=== PATIENT | female | born 1980 | race Caucasian/White ===

== ENCOUNTER → 2017-07-09 14:27 | Outpatient (CLI) | payer BC, SELFPAY | PROVIDERS: Visit Provider Nurse Practitioner Family | DX: Z00.00 Encounter for general adult medical examination without abnormal findings (principal) ==

== ENCOUNTER → 2017-07-11 07:58 | Outpatient (CLI) | payer BC, SELFPAY ==
[2017-07-11 08:17] LABS: Basophils % 0.4 % (0.1-2.0); Eosinophils # 0.2 K/mm3 (0.0-0.4); Eosinophils % 2.3 % (0.1-12.0); Hematocrit 41.5 % (37.0-47.0); Hemoglobin 13.7 g/dL (12.2-16.2); Lymphocytes # 2.4 K/mm3 (0.7-4.5); Lymphocytes % 32.3 K/mm3 (10-50); Mean Corpuscular Hemoglobin 28.8 pg (27.0-31.2); Mean Corpuscular Volume 87.3 fl (81-99); Mean Platelet Volume 7.5 fl (7.4-10.4); Monocytes # 0.3 K/mm3 (0.1-1.0); Monocytes % 4.1 % (1.7-9.3); Neutrophils # 4.5 K/mm3 (1.8-7.8); Neutrophils % 60.9 % (37.0-80.0); Platelet Count 351 K/mm3 (142-424); Red Blood Count 4.76 M/mm3 (4.20-5.40); Red Cell Distribution Width 13.6 % (11.5-17.5); White Blood Count 7.3 K/mm3 (4.8-10.8)
[2017-07-11 09:24] LABS: Alanine Aminotransferase 16 U/L (12-78); Albumin Level 3.8 gm/dL (3.4-5.0); Albumin/Globulin Ratio 1.1 (1.1-1.8); Alkaline Phosphatase 90 U/L (46-116); Aspartate Amino Transferase 15 U/L (15-37); Bilirubin,Total 0.5 mg/dL (0.2-1.0); Blood Urea Nitrogen 10 mg/dL (7-18); Calcium 9.2 mg/dL (8.5-10.1); Carbon Dioxide 29 mmol/L (21.0-32.0); Chloride 106 mmol/L (98-107); Chol/HDL Ratio 4.8 (1-3.5); Cholesterol 197 mg/dL (140-200); Creatinine,Serum 0.75 mg/dL (0.55-1.02); Estimated Glomerular Filt Rate 87 ml/min (>60); GFR (African American) 105 ML/MIN (>60); Globulin 3.4 gm/dl (1.3-3.2); Glucose 99 mg/dL (74-106); HDL Cholesterol 41 mg/dL (29-89); LDL Cholesterol 136 mg/dL (0-130); Sodium 141 mmol/L (136-145); Thyroid Stimulating Hormone 0.42 uIU/ml (0.358-3.740); Total Protein,Serum 7.2 gm/dL (6.4-8.2); Triglycerides 101 mg/dL (30-200); VLDL Cholesterol 20 mg/dL (0-40)
[2017-07-12 14:50] LABS: Vitamin B12 443 pg/mL (232-1245)
== END ==
PROVIDERS: Visit Provider Nurse Practitioner Family
DX: Z00.00 Encounter for general adult medical examination without abnormal findings (principal); E53.8 Deficiency of other specified B group vitamins; E03.9 Hypothyroidism, unspecified
CPT/HCPCS: 36415; 80053; 80061; 82607; 84443; 85025

== ENCOUNTER → 2017-08-21 11:00 | Outpatient (REF) | payer BC, SELFPAY | LOC: LAB 11:00 | PROVIDERS: Visit Provider Podiatrist | DX: L08.9 Local infection of the skin and subcutaneous tissue, unspecified (principal) | CPT/HCPCS: 87070; 87077; 87106; 87205 ==

== ENCOUNTER → 2017-10-31 16:54 | Outpatient (CLI) | payer BC, SELFPAY ==
[2017-10-31 17:18] LABS: Basophils % 0.3 % (0.1-2.0); Eosinophils # 0.1 K/mm3 (0.0-0.4); Eosinophils % 1.5 % (0.1-12.0); Hematocrit 41.5 % (37.0-47.0); Lymphocytes % 31.5 K/mm3 (10-50); Mean Corpuscular HGB Conc 33.8 g/dL (31.8-35.4); Mean Corpuscular Hemoglobin 29.2 pg (27.0-31.2); Mean Corpuscular Volume 86.3 fl (81-99); Mean Platelet Volume 7.4 fl (7.4-10.4); Monocytes # 0.5 K/mm3 (0.1-1.0); Monocytes % 5.3 % (1.7-9.3); Neutrophils # 5.8 K/mm3 (1.8-7.8); Neutrophils % 61.3 % (37.0-80.0); Platelet Count 328 K/mm3 (142-424); Red Blood Count 4.81 M/mm3 (4.20-5.40); Red Cell Distribution Width 13.1 % (11.5-17.5); White Blood Count 9.5 K/mm3 (4.8-10.8)
[2017-10-31 18:56] LABS: Alanine Aminotransferase 21 U/L (12-78); Albumin Level 4.1 gm/dL (3.4-5.0); Albumin/Globulin Ratio 1.2 (1.1-1.8); Alkaline Phosphatase 97 U/L (46-116); Anion Gap 11.7 mEq/L (5-15); Aspartate Amino Transferase 12 U/L (15-37); Bilirubin,Total 0.4 mg/dL (0.2-1.0); Blood Urea Nitrogen 7 mg/dL (7-18); Carbon Dioxide 27 mmol/L (21.0-32.0); Chloride 103 mmol/L (98-107); Chol/HDL Ratio 5.6 (1-3.5); Cholesterol 202 mg/dL (140-200); Creatinine,Serum 0.81 mg/dL (0.55-1.02); Estimated Glomerular Filt Rate 79 ml/min (>60); GFR (African American) 96 ML/MIN (>60); Globulin 3.5 gm/dl (1.3-3.2); Glucose 96 mg/dL (74-106); HDL Cholesterol 36 mg/dL (29-89); LDL Cholesterol 132 mg/dL (0-130); Potassium 3.7 mmoL/L (3.5-5.1); Sodium 138 mmol/L (136-145); Thyroid Stimulating Hormone 0.05 uIU/ml (0.358-3.740); Total Protein,Serum 7.6 gm/dL (6.4-8.2); Triglycerides 169 mg/dL (30-200); VLDL Cholesterol 34 mg/dL (0-40)
== END ==
LOC: LAB.CARL 16:55 → LAB 16:56
PROVIDERS: Visit Provider Nurse Practitioner Family
DX: Z00.00 Encounter for general adult medical examination without abnormal findings (principal); R00.2 Palpitations; R06.02 Shortness of breath; E03.9 Hypothyroidism, unspecified
CPT/HCPCS: 36415; 80053; 80061; 84443; 85025

== ENCOUNTER → 2017-11-01 17:55 | Outpatient (CLI) | payer BC, SELFPAY | PROVIDERS: PCP Nurse Practitioner Family; Visit Provider Nurse Practitioner Family | DX: R00.2 Palpitations (principal); R06.02 Shortness of breath | CPT/HCPCS: 93225; 93226 ==

== ENCOUNTER → 2017-11-07 14:26 | Outpatient (CLI) | payer BC, SELFPAY ==
--- NOTE | 2017-11-07 14:34 | CA_ITS ---
PROCEDURE: 2-D M-mode and color Doppler study INDICATIONS FOR THE TEST: Chest pain X COPD Heart Murmur Tobacco Smoking PalpitationsX Fatigue Syncope Edema Hypertension Diabetes Mellitus Rheumatic Fever SOBXDOE Obesity Hyperlipidemia Family History HD Additional History BUBBLE STUDY DONE PATIENT INFORMATION HEIGHT: 65 WEIGHT:125 GENDER: Female B/P:110/70 2-D/M-MODE INTERPRETATION: 2-D MEASUREMENTS OBSERVED VALUES IN CMS Right Ventricular Dimension (RVDd) 1.9 Interventricular Septum (Thickness)(IVsd) .8 Left Ventricular Internal Dimensions(LVIDd) 4.5 Left Ventricular Posterior Wall (Thickness)(LVPWd) .9 Aortic Root 2.5 Aortic Cusp Separation 1.8 Left Atrial Dimensions (LAD) 2.5 2D 1. Left atrium is normal size, left ventricle is normal size, there is no concentric left ventricular hypertrophy, visually estimated ejection fraction 55% with no obvious regional wall motion abnormality. 2. The right atrium and right ventricle are normal size and contractility. 3. The aortic, mitral and tricuspid valve are grossly normal. 4. The pulmonic valve is poorly visualized. 5. No significant pericardial effusion noted. DOPPLER INTERROGATION: Doppler interrogation of the aortic, mitral and tricuspid valvular presence of mild mitral and tricuspid regurgitation, tricuspid regurgitation jet velocity is insufficient for calculation of the right ventricular systolic pressure, diastolic parameters are within normal range. Agitated saline contrast study fails to identify intracardiac shunt. CONCLUSION: 1. Normal left ventricular size, preserved left ventricular systolic function, visually estimated ejection fraction 55% with no obvious regional wall motion abnormality. Diastolic parameters are within normal range. 2. Mild mitral and tricuspid regurgitation 3. No significant pericardial effusion noted.
== END ==
PROVIDERS: PCP Internal Medicine Adolescent Medicine; Visit Provider Nurse Practitioner Family
DX: R00.2 Palpitations (principal); R06.02 Shortness of breath
CPT/HCPCS: 93306

== ENCOUNTER → 2018-03-08 18:07 | Outpatient (CLI) | payer BC, MEDICAID, SELFPAY ==
[2018-03-08 18:54] LABS: Thyroid Stimulating Hormone 1.19 uIU/ml (0.358-3.740)
[2018-03-11 14:25] LABS: Vitamin D 25 Hydroxy 17.8 ng/mL (30.0-100.0)
== END ==
PROVIDERS: Visit Provider Nurse Practitioner Family
DX: E03.9 Hypothyroidism, unspecified (principal); R53.83 Other fatigue
CPT/HCPCS: 82652; 84443

== ENCOUNTER → 2018-03-19 08:43 | Outpatient (CLI) | payer MEDICAID, SELFPAY ==
--- NOTE | 2018-03-19 08:44 | US_ITS ---
US abdomen complete HISTORY: Right upper quadrant pain ITS.REASON: abdominal pain ORDERING PHYSICIAN: Tata Monroe PATIENT AGE: 37 years COMPARISON: None FINDINGS: PANCREAS:Unremarkable. No obvious mass or abnormal fluid collection. No ductal dilatation LIVER:No focal liver lesions demonstrated. Homogeneous echogenicity. No intrahepatic biliary ductal dilatation evident. Appropriate directional blood flow within a nondilated portal vein RIGHT KIDNEY:Unremarkable. Normal size and echogenicity. No hydronephrosis LEFT KIDNEY:Unremarkable. No hydronephrosis. Normal size and echogenicity. GALLBLADDER:No gallstones, gallbladder wall thickening, pericholecystic fluid, or biliary dilatation. AORTA:No evidence of aneurysmal dilatation. SPLEEN:Unremarkable. Normal size and echogenicity ASCITES:None demonstrated. IMPRESSION: Unremarkable abdominal ultrasound
== END ==
PROVIDERS: PCP Nurse Practitioner Family; Visit Provider Nurse Practitioner Family
DX: R10.31 Right lower quadrant pain (principal); Z76.89 Persons encountering health services in other specified circumstances
CPT/HCPCS: 76700

== ENCOUNTER → 2018-05-07 15:13 | Outpatient (CLI) | payer MEDICAID, SELFPAY ==
--- NOTE | 2018-05-07 15:15 | US_ITS ---
US transvaginal HISTORY: Right-sided pelvic pain ITS.REASON: US T/V- RLQP ORDERING PHYSICIAN: Zeyad Rangel MD PATIENT AGE: 37 years Comparison: None FINDINGS: There has been a prior hysterectomy. Vaginal cuff has an unremarkable appearance. The left ovary is 2.6 x 2.1 cm and contains a few small follicles. Right ovary is 3 x 2 cm containing small follicles and a complex 16 mm cyst with internal septation. No cul-de-sac fluid. IMPRESSION: 1. Prior hysterectomy. 2. 16 mm complex right ovarian cyst
== END ==
PROVIDERS: PCP Nurse Practitioner Family; Visit Provider Nurse Practitioner Obstetrics & Gynecology
DX: R10.31 Right lower quadrant pain (principal)
CPT/HCPCS: 76830

== ENCOUNTER → 2018-07-09 14:40 | Outpatient (CLI) | payer MEDICAID, SELFPAY ==
--- NOTE | 2018-07-09 14:44 | US_ITS ---
US thyroid HISTORY: ITS.REASON: hypothyroidism, follow-up thyroid nodules ORDERING PHYSICIAN: Tata Monroe APRN PATIENT AGE: 37 years Comparison: 09/16/2015 FINDINGS: There has been a prior left thyroidectomy. The right lobe is 4 x 1 x 1.4 cm. There is diffuse heterogeneous echogenicity of the thyroid gland. Discrete nodules are difficult to ascertain due to this heterogeneous echogenicity. In the upper pole there is a 14 x 5 mm area of slight decrease echogenicity not significant change. In the mid polar region posteriorly there is a 1.4 x 0.7 cm slightly hypoechoic area probably not significant changed. No new nodules evident IMPRESSION: Status post left thyroidectomy. Enlarged right thyroid gland with heterogeneous echogenicity with questionable nodules not significant changed
== END ==
PROVIDERS: PCP Nurse Practitioner Family; Visit Provider Nurse Practitioner Family
DX: E03.9 Hypothyroidism, unspecified (principal); E04.9 Nontoxic goiter, unspecified
CPT/HCPCS: 76536

== ENCOUNTER → 2018-08-19 09:52 | Outpatient (CLI) | payer MEDICAID, SELFPAY ==
[2018-08-19 11:41] LABS: Thyroid Stimulating Hormone 1.36 uIU/ml (0.358-3.740)
== END ==
PROVIDERS: Visit Provider Otolaryngology
DX: E03.9 Hypothyroidism, unspecified (principal)
CPT/HCPCS: 36415; 84436; 84443

== ENCOUNTER → 2018-12-12 15:29 | Outpatient (CLI) | payer MEDICAID, SELFPAY ==
--- NOTE | 2018-12-12 15:33 | XR_ITS ---
PROCEDURE: XR CHEST 2V CLINICAL HISTORY: cough COMPARISON: No exams were available for comparison FINDINGS: The cardiomediastinal silhouette and pulmonary vascularity are within normal limits. There is a 3 millimeter benign calcified granuloma in the periphery of the right midlung. The remainder of the lung holcomb are clear without pleural effusion or pneumothorax. There is mild dextroscoliosis of the mid to lower thoracic spine. No acute bony abnormalities. IMPRESSION: No acute findings. Dictated by: Kitty Lerma 12/12/2018 15:39 Electronically signed by Jorge Luis Beach in [place] 12/12/2018 15:44
== END ==
PROVIDERS: PCP Nurse Practitioner Family; Visit Provider Nurse Practitioner Family
DX: R06.02 Shortness of breath (principal); Z87.09 Personal history of other diseases of the respiratory system
CPT/HCPCS: 71046

== ENCOUNTER → 2019-01-22 15:08 | Outpatient (POV) | payer MEDICAID, SELFPAY | DX: Z00.00 Encounter for general adult medical examination without abnormal findings (principal) ==

== ENCOUNTER → 2019-07-21 16:42 | Outpatient (CLI) | payer MEDICAID, SELFPAY | PROVIDERS: Visit Provider Physician Assistant | DX: N39.0 Urinary tract infection, site not specified (principal) | CPT/HCPCS: 87086; 87088; 87186 ==

== ENCOUNTER → 2019-10-08 09:33 | Outpatient (CLI) | payer MEDICAID, SELFPAY ==
[2019-10-08 10:13] LABS: Basophils % 0.3 % (0.1-2.0); Hematocrit 41.3 % (37.0-47.0); Hemoglobin 14.4 g/dL (12.2-16.2); Lymphocytes # 2.1 K/mm3 (0.7-4.5); Lymphocytes % 26.4 % (10-50); Mean Corpuscular HGB Conc 34.7 g/dL (31.8-35.4); Mean Corpuscular Hemoglobin 31.2 pg (27.0-31.2); Mean Corpuscular Volume 89.9 fl (81-99); Mean Platelet Volume 7.4 fl (7.4-10.4); Monocytes # 0.3 K/mm3 (0.1-1.0); Monocytes % 4.2 % (1.7-9.3); Neutrophils # 5.4 K/mm3 (1.8-7.8); Neutrophils % 69.1 % (37.0-80.0); Platelet Count 317 K/mm3 (142-424); White Blood Count 7.8 K/mm3 (4.8-10.8)
[2019-10-08 10:44] LABS: Chloride 101 mmol/L (98-107); Sodium 137 mmol/L (136-145)
[2019-10-08 10:47] LABS: Alanine Aminotransferase 11 U/L (12-78); Albumin Level 3.9 g/dl (3.5-5.0); Albumin/Globulin Ratio 1.4 (1.1-1.8); Alkaline Phosphatase 72 U/L (38-126); Aspartate Amino Transferase 19 U/L (14-36); Bilirubin,Total 0.6 mg/dl (0.2-1.3); Blood Urea Nitrogen 6 mg/dl (7-17); Calcium 8.7 mg/dl (8.4-10.2); Carbon Dioxide 27 mmol/L (22.0-30.0); Cholesterol 202 mg/dl (140-200); Estimated Glomerular Filt Rate 93 ml/min (>60); GFR (African American) 112 ML/MIN (>60); Globulin 2.8 g/dL (1.3-3.2); Glucose 85 mg/dl (74-100); Total Protein,Serum 6.7 g/dl (6.3-8.2); Triglycerides 201 mg/dl (30-150); VLDL Cholesterol 40 mg/dL (0-40)
[2019-10-08 10:58] LABS: Direct LDL Cholesterol 125.45 mg/dL (100-129)
[2019-10-08 11:05] LABS: T4 (Thyroxine) 8.4 ug/dl (5.53-11.0)
[2019-10-08 11:18] LABS: Thyroid Stimulating Hormone 2.75 uIU/mL (0.465-4.68)
[2019-10-08 12:11] LABS: Chol/HDL Ratio 4.4 (1-3.5); HDL Cholesterol 46 mg/dl (40-60)
== END ==
PROVIDERS: Visit Provider Physician Assistant
DX: E07.9 Disorder of thyroid, unspecified (principal)
CPT/HCPCS: 36415; 80053; 80061; 84436; 84443; 85025

== ENCOUNTER → 2019-12-02 15:56 | Outpatient (CLI) | payer MEDICAID, SELFPAY ==
--- NOTE | 2019-12-02 15:59 | XR_ITS ---
PROCEDURE: XR HAND RT MIN 3V CLINICAL INDICATION: hand pain COMPARISON: No exams were available for comparison FINDINGS: No fracture or dislocation. No lytic or blastic change. There is normal mineralization. The joint spaces are well-preserved. No significant degenerative/arthritic changes. No erosive changes evident. Other findings:None. IMPRESSION: No acute findings. Dictated by: Aleks Lomeli MD 12/02/2019 16:48 Aleks Lomeli MD in [place] 12/02/2019 16:48
== END ==
PROVIDERS: PCP Nurse Practitioner Family; Visit Provider Nurse Practitioner Family
DX: M79.641 Pain in right hand (principal)
CPT/HCPCS: 73130

== ENCOUNTER → 2019-12-12 12:30 | Outpatient (CLI) | payer MEDICAID, SELFPAY ==
[2019-12-14 11:26] LABS: FSH 2.6 mIU/mL (.); LH 6.4 mIU/mL (.)
== END ==
PROVIDERS: Visit Provider Nurse Practitioner Obstetrics & Gynecology
DX: Z01.419 Encounter for gynecological examination (general) (routine) without abnormal findings (principal)
CPT/HCPCS: 36415; 82670; 83001; 83002

== ENCOUNTER → 2019-12-18 10:19 | Outpatient (CLI) | payer MEDICAID, SELFPAY ==
--- NOTE | 2019-12-18 10:24 | MM_ITS ---
PROCEDURE: MM DIG SCREENING MAMM BI W/CAD Digital Breast Tomosynthesis Included CLINICAL INDICATION: SCREENING There is a history of breast cancer in the patient's maternal aunt and paternal cousin COMPARISON: This is a baseline screening exam, patient without complaints TECHNIQUE: Standard CC and MLO images and 3D Tomosynthesis was obtained. R2 CAD reviewed. FINDINGS: Prominent diffuse somewhat heterogenic fibroglandular densities are seen throughout both breasts. There is an asymmetric nodular lesion deep upper outer quadrant right breast. This is best seen on the MLO projection. Sunny images somewhat indeterminate and recommend the patient return for spot compression views and ultrasound for additional evaluation. There also is a single tiny benign-appearing nodular density in each breast. There are no suspicious microcalcifications. IMPRESSION: Dense and heterogenic parenchymal pattern with asymmetric lesion right breast BI-RAD Category: 0 Need Additional Imaging Evaluation FOLLOW-UP: IMM Immediate Follow-up Recommended (A letter has been sent to the patient regarding results of the study.) Dictated by: Dr. Srinivasan Platt MD 12/23/2019 10:43 Dr. Srinivasan Platt MD in [place] 12/23/2019 10:43
== END ==
PROVIDERS: PCP Physician Assistant; Visit Provider Nurse Practitioner Family
DX: Z12.31 Encounter for screening mammogram for malignant neoplasm of breast (principal)
CPT/HCPCS: 77063; 77067

== ENCOUNTER → 2020-01-07 13:44 | Outpatient (CLI) | payer MEDICAID, SELFPAY ==
--- NOTE | 2020-01-07 13:47 | US_ITS ---
PROCEDURE: US BREAST RT COMPLETE CLINICAL INDICATION: dense tissue and asymmetric lesion on rt breast COMPARISON: No exams were available for comparison FINDINGS: There is a small hypoechoic lesion 10 o'clock position outer breast which shows slight acoustic enhancement but with internal echoes and this likely is a small complex cyst. This is smaller and not in the appropriate location of the density seen on the recent mammogram. There are couple of nodes in the axilla. IMPRESSION: No definite ultrasound correlation for the questionable nodular lesions seen on mammogram and recommend the patient continue with yearly screening mammography Dictated by: Dr. Srinivasan Platt MD 01/09/2020 10:09 Dr. Srinivasan Platt MD in [place] 01/09/2020 10:09
--- NOTE | 2020-01-07 13:48 | MM_ITS ---
PROCEDURE: MM DIG MAMM DX UNILAT RT CAD Digital Breast Tomosynthesis Included CLINICAL INDICATION: DENSE BREAST, RT BREAST LESION COMPARISON: MG MM DIG SCREENING MAMM BI W/CAD from 12/18/2019 US US BREAST RT COMPLETE from 01/07/2020 TECHNIQUE: Standard CC and MLO images and 3D Tomosynthesis was obtained. R2 CAD reviewed. FINDINGS: The possible nodular lesion upper right breast appears to press out on both the MLO and CC spot compression views. Ultrasound performed the same date showed no abnormality at this location. There is a diffusely heterogenic parenchymal pattern lessening the sensitivity of mammography even with anel images. However I believe this finding on the mammogram of 12/18/2019 represents a summation shadow of heterogenic glandular elements and no additional evaluation is indicated at this time. IMPRESSION: Basically negative problem solving views BI-RAD Category: 1 Negative FOLLOW-UP: 1YR 1 Year Follow-up (A letter has been sent to the patient regarding results of the study.) Dictated by: Dr. Srinivasan Platt MD 01/09/2020 10:06 Dr. Srinivasan Platt MD in [place] 01/09/2020 10:06
== END ==
PROVIDERS: PCP Physician Assistant; Visit Provider Physician Assistant
DX: R92.8 Other abnormal and inconclusive findings on diagnostic imaging of breast (principal)
CPT/HCPCS: 76641; 77061; 77065; G0279

== ENCOUNTER → 2020-09-20 17:41 | Outpatient (CLI) | payer MEDICAID, SELFPAY | PROVIDERS: Visit Provider Physician Assistant | DX: R30.0 Dysuria (principal) | CPT/HCPCS: 87086; 87088; 87186 ==

== ENCOUNTER 2020-09-23 14:30 | Outpatient (RCR) | payer MEDICAID, SELFPAY ==
--- NOTE | 2020-08-10 15:30 | HMH.PTOPEV ---
PT Outpatient Evaluation Rehab PT Outpatient Evaluation Start: 08/10/20 14:59 Freq: Status: Active Protocol: Document 08/10/20 15:16 ANTELMO (Rec: 08/10/20 15:30 ANTELMO [id number]) Electronically Signed By Alireza Martínez, PT 08/10/20 15:16 Outpatient Therapy Subjective History Subjective History Pt reports insidious onset R knee pain beginning in 2019, and still unresolved. Pt reports intermittent R knee pain (medial aspect), with some popping/clicking, and very infrequent buckling. Pt reports no imaging reports to date. Chief Complaint Pain,Stiff,Swelling,Weakness Symptom Type Ache,Dull Symptoms Relieved By Rest/Positioning,Heat,Ice Symptoms Aggravated By Standing,Physical Activity Prior Functional Limitations Standing,Squatting Current Functional Limitations Standing,Squatting Symptom Description Intermittent Level of pain today (0-10) 1 Pain scale - at its best (0-10) 0 Pain scale - at its worst (0-10) 6 Hip/Knee Eval Gait Observation General Gait Pattern Observation No Deviations/Normal Palpation Tenderness right Knee Palpation Finding Tenderness Knee Palpation Overall Comment medial jt line 3/4, medial plica 3/4 MMT Hip Flexion Strength Grade 4- Good- Hip Abduction Strength Grade 3+ Fair+ Hip Adduction Strength Grade 3+ Fair+ Hip Extension Strength Grade 3+ Fair+ Hip External Rotation Strength Grade 3+ Fair+ Hip Internal Rotation Strength Grade 4- Good- Knee Extension Strength Grade 5 Normal Knee Flexion Strength Grade 4- Good- ROM Knee Flexion Active Range of Motion ( 0-142 degrees) Effusion joint effusion knee exam standard right Mid - Patellar Circumerential Measure ( 33 cm) Special Tests Knee Valgus Stress Test Negative Left Knee Varus Stress Test Negative Right Knee Mauro Test Positive Right Patella Apprehension Test Negative Right Patellar Grind Test Negative Right Patellar Compression Test Negative Right Patella Houghston's Plica Test Positive Right Outpatient Therapy Assessment Impairments Problems/Impairmments Palpation Tenderness,Impaired Range of Motion,Impaired Strength,Impaired Standing, Impaired Squatting,Subjective C/O Pain,Impaired Self Care/ Self Management Prognosis Rehab Potential
--- NOTE | 2020-09-08 16:07 | HMH.RHREAS ---
Rehab Reassessment Rehab OP Re-assessment Start: 09/08/20 16:01 Freq: Status: Active Protocol: Document 09/08/20 16:01 KAMRYNADRIA (Rec: 09/08/20 16:07 ANTELMO [id number]) Electronically Signed By Alireza Martínez, PT 09/08/20 16:01 Rehab Re-assessment Subjective Subjective Pt reports 2-3/10 right knee pain w/activity on VAS, and feels 30% better overall since I eval Objective Objective Notes AROM: RIGHT KNEE FLX 0-140 PAIN @ END FLX MMT: R HIP 4-/5, R HIP ER 4-/5 , R HIP ER 4/5, R KNEE FLX 4/5 , R KNEE EXT 4+/5 TTP: R KNEE MEDIAL PLICA 1-2 , R KNEE MEDIAL JT LINE 2/4 Assessment Progress Assessment Progressing as Expected Assessment Notes PT W/IMPROVED STRENGTH AND TTP , AND IMPROVED 'BUCKLING' FREQUENCY SINCE I EVAL Patient goals met STG'S 06/16 Goals Not Met STG'S 05/16, LTG'S 08/15 Plan Plan PT TO CONT. W/SKILLED P.T. TO MAKE FURTHER IMPROVEMENTS IN R KNEE AROM, STRENGTH, TTP, AND GAIT TO ALLOW FOR OPTIMAL FUNCTION Frequency of Therapy 2-3X/WK Duration of therapy 4-6WKS Time and Billing Re-Eval Time 15 Re-Eval Billing Units 1 PHYSICIAN CERTIFICATION: I certify the specified therapy services for Ying Frazier are required, authorized, and reviewed every 30 days.
== END 2020-09-23 14:35 | disposition home or self-care (01) ==
LOC: PT 14:30
PROVIDERS: PCP Physician Assistant; Visit Provider Physician Assistant
DX: M25.561 Pain in right knee (principal)
CPT/HCPCS: 97010; 97014; 97033; 97035; 97110; 97140; 97163; 97164; G0283

== ENCOUNTER 2020-10-11 09:56 | Emergency (ER) | payer MEDICAID, SELFPAY ==
[2020-10-11 10:05] VITALS: BP 127/76; PULSE 80; RESP 20; TEMP 37.1; O2SAT 97; BMI 22.9
--- NOTE | 2020-10-11 10:27 | HMH.EDUTC ---
[facility] [place] Disposition Clinical Impression: UTI (urinary tract infection) Qualifiers: Urinary tract infection type: site unspecified Hematuria presence: with hematuria Qualified Code(s): N39.0 - Urinary tract infection, site not specified Disposition: Home, Self-Care Condition on Discharge: Good Instructions: Trimethoprim/Sulfamethoxazole (Alternative Therapy), Urinary Tract Infection, DI for Urinary Tract Infection (UTI), Phenazopyridine Additional Instructions: *Increase fluids. Water not Soda or Tea *Start antibiotic immediately and be sure to take as ordered for the FULL length of time although you should start to see improvement over the next 48 hours *Pyridium as needed Remember this medication will turn your urine [place]. This is normal but it will stain what ever it gets on *You should not use Pyridium for more than 48 hours. If so , follow up with your primary physician to review urine culture and ensure that antibiotic is adequate for infection *Be SURE to follow up anytime for new or worsening symptoms with your family doctor. AND in 48 hours for urine culture results with your family doctor, if you do not have a doctor then you may call back to the [facility] for urine culture results and further treatment. We do recommend that you choose and establish care with a Primary Care Physician. AND follow up with them in 10-14 days to repeat UA to ensure infection is resolved and blood no longer present *Be sure to let your PCP know that we sent urine cultures from the [facility] so they can follow up to ensure that you area the on the correct antibiotic Call your doctor office and make appointment for 48 hours (2 days from today) to follow up and get the results of your urine culture and further treatment Prescriptions: Sulfamethoxazole/Trimethoprim [Bactrim DS tablet] 1 each PO BID 7 Days #14 tab Transmission Status: Received by [id number] Phenazopyridine HCl [Pyridium 200mg Tablet] 200 pow PO TID #6 tab Transmission Status: Received by [id number] Referrals: Lianet Bose PA [Primary Care Provider] - As needed Time of Disposition: 10:36 Medical Decision Making - Kings Inquiry Pt receiving controlled substance: No Kings was queried for this patient: No Vital Signs: 10/11/20 10:05 10/11/20 10:47 Temperature 98.7 F 98.7 F Temperature Source Oral Pulse Rate 80 Pulse Rate [Right Brachial] 80 Respiratory Rate 20 20 Blood Pressure 127/76 Blood Pressure [Right Arm] 127/76 Blood Pressure Mean [Right Arm] 93 Blood Pressure Source [Right Arm] Automatic Cuff Blood Pressure Position [Right Arm] Sitting 02 Sat by Pulse Oximetry 97 Oxygen Delivery Method Room Air - Lab Data Lab Results 10/11/20 10:07: Urine Color Yellow, Urine Appearance Cloudy, Urine pH 6.0, Ur Specific [place] 1.010, Urine Protein 1+, Urine Glucose (UA) Negative, Urine Ketones Negative, Urine Blood 3+, Urine Nitrate Negative, Urine Bilirubin Negative, Urine Urobilinogen 0.2, Ur Leukocyte Esterase 3+ A Orders (Tests/Meds): ED MEDICATIONS Discontinued Medications Generic Name Dose Route Start Last Admin Trade Name Freq PRN Reason Stop Dose Admin Ceftriaxone Sodium 1 gm 10/11/20 10:31 10/11/20 10:43 Ceftriaxone 1gm Vial IM 10/11/20 10:32 1 gm ONCE ONE Administration Protocol Lidocaine HCl 0 ml 10/11/20 10:31 10/11/20 10:43 Lidocaine 1% 5ml Pf Vial IM 10/11/20 10:32 2.1 ml ONCE ONE Administration ORDERS Category Date Time Status Urine Culture Stat Micro 10/11/20 10:05 Received [facility] [place] HPI - General Stated complaint: possible uti Time Seen by Provider: 10/11/20 10:27 Mode of Arrival: Ambulatory Source of Information: Patient Limitations: No Limitations Description of Symptoms (Recalled from Triage Doc. by RN): PATIENT C/O LOWER BACK PAIN SINCE LAST NIGHT AND BURNING/BLOOD WITH URINATION SINCE THIS MORNING HEENT Symptoms (Recalled from RN notes): No Resp Symptoms (Recalled f
[2020-10-11 10:47] VITALS: BP 127/76; PULSE 80; RESP 20; TEMP 37.1; O2SAT 97
[2020-10-11 10:54] LABS: Apearance,Urine Cloudy (Clear); Bilirubin,Urine Negative (Negative); Blood, Urine 3+ (Negative); Color,Urine Yellow (Yellow); Glucose,Urine (UA) Negative (Negative); Ketones,Urine Negative (Negative); Protein,Urine 1+ (Negative)
[2020-10-11 10:55] LABS: UTC Leukocyte Esterase,Urine 3+ (Negative); UTC Nitrate,Urine Negative (Negative); Urobilinogen,Urine 0.2 EU/dl (0.2)
== END 2020-10-11 10:59 | disposition home or self-care (01) ==
PROVIDERS: Emergency Provider Nurse Practitioner; PCP Physician Assistant
DX: N30.00 Acute cystitis without hematuria (principal); F41.8 Other specified anxiety disorders
CPT/HCPCS: 81003; 87086; 96372; 99202; G0463

== ENCOUNTER → 2020-10-13 14:06 | Outpatient (CLI) | payer MEDICAID, SELFPAY ==
[2020-10-13 14:22] LABS: Basophils # 0.1 K/mm3 (0-0.2); Basophils % 0.8 % (0.1-2.0); Eosinophils # 0.1 K/mm3 (0.0-0.4); Eosinophils % 0.6 % (0.1-12.0); Hematocrit 41.8 % (37.0-47.0); Hemoglobin 14.6 g/dL (12.2-16.2); Lymphocytes # 2.2 K/mm3 (0.7-4.5); Lymphocytes % 25.8 % (10-50); Mean Corpuscular HGB Conc 34.8 g/dL (31.8-35.4); Mean Corpuscular Hemoglobin 31.3 pg (27.0-31.2); Mean Corpuscular Volume 89.8 fl (81-99); Monocytes # 0.5 K/mm3 (0.1-1.0); Monocytes % 5.8 % (1.7-9.3); Neutrophils # 5.8 K/mm3 (1.8-7.8); Platelet Count 371 K/mm3 (142-424); Red Blood Count 4.65 M/mm3 (4.20-5.40); Red Cell Distribution Width 13.2 % (11.5-17.5); White Blood Count 8.6 K/mm3 (4.8-10.8)
[2020-10-13 14:29] LABS: Alanine Aminotransferase 12 U/L (12-78); Albumin Level 4.6 g/dl (3.5-5.0); Albumin/Globulin Ratio 1.5 (1.1-1.8); Alkaline Phosphatase 69 U/L (38-126); Anion Gap 15.3 mEq/L (5-15); Aspartate Amino Transferase 22 U/L (14-36); Bilirubin,Total 0.6 mg/dl (0.2-1.3); Blood Urea Nitrogen 9 mg/dl (7-17); Calcium 9.5 mg/dl (8.4-10.2); Carbon Dioxide 21 mmol/L (22.0-30.0); Chloride 107 mmol/L (98-107); Chol/HDL Ratio 5.2 (1-3.5); Cholesterol 218 mg/dl (140-200); Estimated Glomerular Filt Rate 69 ml/min (>60); GFR (African American) 83 ML/MIN (>60); Glucose 72 mg/dl (74-100); HDL Cholesterol 42 mg/dl (40-60); Potassium 4.3 mmoL/L (3.5-5.1); Sodium 139 mmol/L (136-145); Total Protein,Serum 7.6 g/dl (6.3-8.2); Triglycerides 199 mg/dl (30-150); VLDL Cholesterol 40 mg/dL (0-40)
[2020-10-13 14:39] LABS: Direct LDL Cholesterol 117.49 mg/dL (100-129)
[2020-10-13 14:45] LABS: 25-OH Vitamin D, Total 27.4 ng/mL (30-100); Free T4 (Free Thyroxine) 1.32 ng/dl (0.78-2.19)
[2020-10-13 15:00] LABS: Thyroid Stimulating Hormone 2.78 uIU/mL (0.465-4.68)
== END ==
PROVIDERS: Visit Provider Physician Assistant
DX: E03.9 Hypothyroidism, unspecified (principal); E55.9 Vitamin D deficiency, unspecified; F41.9 Anxiety disorder, unspecified
CPT/HCPCS: 80053; 80061; 82306; 84439; 84443; 85025; 87086

== ENCOUNTER → 2020-11-29 10:59 | Outpatient (CLI) | payer MEDICAID, SELFPAY | PROVIDERS: PCP Physician Assistant; Visit Provider Nurse Practitioner | DX: Z20.822 Contact with and (suspected) exposure to COVID-19 (principal) | CPT/HCPCS: C9803; U0003; U0005 ==

== ENCOUNTER → 2020-12-20 15:24 | Outpatient (CLI) | payer MEDICAID, SELFPAY ==
--- NOTE | 2020-12-20 15:24 | MM_ITS ---
PROCEDURE INFORMATION: Exam: MG Bilateral Screening 3D Mammography Exam date and time: 12/20/2020 3:24 PM Age: 40 years old Clinical indication: Encounter for screening mammogram for malignant neoplasm of breast TECHNIQUE: Imaging protocol: Bilateral screening tomosynthesis and 2D mammography including computer-aided detection (CAD) when performed. COMPARISON: 01/07/2020, 12/18/19. FINDINGS: MAMMOGRAPHY: Breast composition: The breasts are heterogeneously dense, which may obscure small masses. Mass: No suspicious masses. Architectural distortion: No suspicious distortion. Calcifications: No suspicious calcifications. Asymmetric density: None. Skin thickening: None. Axillary adenopathy: None. IMPRESSION: No mammographic evidence of malignancy. Annual screening is recommended unless otherwise clinically indicated. ASSESSMENT: BI-RADS Category 2: Benign
== END ==
PROVIDERS: PCP Physician Assistant; Visit Provider Physician Assistant
DX: Z12.31 Encounter for screening mammogram for malignant neoplasm of breast (principal)
CPT/HCPCS: 77063; 77067

== ENCOUNTER 2020-12-21 09:32 | Emergency (ER) | payer MEDICAID, SELFPAY ==
[2020-12-21 11:15] VITALS: BP 141/88; PULSE 81; RESP 18; TEMP 37; O2SAT 98; BMI 22.6
--- NOTE | 2020-12-21 11:23 | HMH.EDUTC ---
[facility] [place] Impression: Allergic rhinitis Qualifiers: Allergic rhinitis trigger: unspecified Allergic rhinitis seasonality: unspecified Qualified Code(s): J30.9 - Allergic rhinitis, unspecified Disposition: Home, Self-Care Condition on Discharge: Good Instructions: Allergic Rhinitis, DI for Allergic Rhinitis Additional Instructions: *Monitor Temp, Over the counter Motrin or Tylenol as directed/as needed Tylenol every 4 hours and Motrin every 6 hours (as long as your family doctor has told you that you can take it) for fever or pain. and straight to ER if unable to lower temp less than 101.0 after medication given *Warm salt water gargles may help to soothe the throat *Throat Lozenges *Warm fluids like tea with honey may help to soothe the throat *Sleep elevated *Humidifier/Vaporizer *Flonase 2 sprays in each nostril daily but be aware that it may take 2-3 days before you notice improvement Your throat swab was sent for culture. Those results are typically sent to your primary care. Be sure to follow up in 2-3 days with your family doctor/primary care physician if no improvement so they can review those result and treat if necessary. If you don?t have a primary care doctor, I recommend you get one but in the mean time, you will have to return to a walk in clinic Follow up IMMEDIATELY for new or worsening symptoms or no Noticeable improvement over the next 48-72 hours. 911 for difficulty breathing or swallowing Prescriptions: Fluticasone Propionate [Flonase 50mcg nasal spray 16gm] 1 spr NS DAILY #1 each Transmission Status: Pending to [id number] Referrals: Lianet Bose PA [Primary Care Provider] - As needed Forms: Work/School Release Time of Disposition: 11:30 Medical Decision Making - Kings Inquiry Pt receiving controlled substance: No Kings was queried for this patient: No Vital Signs: 12/21/20 11:15 Temperature 98.6 F Temperature Source Oral Pulse Rate [Right Radial] 81 Respiratory Rate 18 Blood Pressure [Right Arm] 141/88 H Blood Pressure Mean [Right Arm] 105 Blood Pressure Source [Right Arm] Automatic Cuff Blood Pressure Position [Right Arm] Sitting 02 Sat by Pulse Oximetry 98 Oxygen Delivery Method Room Air [facility] [place] - General Stated complaint: sore throat and ear pain Time Seen by Provider: 10/12/21 11:24 Mode of Arrival: Ambulatory Source of Information: Patient Limitations: No Limitations Description of Symptoms (Recalled from Triage Doc. 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 and pressure in her ears for a couple of days States that today she was still having sore throat so she came in to get checked - Related Data Home Medications Medication Instructions Recorded Confirmed Levothyroxine Sodium [Synthroid] 75 mcg PO DAILY 10/11/20 10/13/20 Previous Rx's Medication Instructions Recorded Phenazopyridine HCl [Pyridium 200 pow PO TID #6 tab 10/11/20 200mg Tablet] Sulfamethoxazole/Trimethoprim 1 each PO BID 7 Days #14 tab 10/11/20 [Bactrim DS tablet] cholecalciferol (vitamin D3) 25 25 mcg PO DAILY #30 cap 10/15/20 mcg (1,000 unit) capsule ergocalciferol (vitamin D2) 1,250 1,250 mcg PO WEEKLY #5 cap 10/15/20 mcg (50,000 unit) capsule Fluticasone Propionate [Flonase 1 spr NS DAILY #1 each 12/21/20 50mcg nasal spray 16gm] Allergies Allergy/AdvReac Type Severity Reaction Status Date / Time No Known Allergies Allergy Verified 10/13/20 10:18 - Worker's Comp Is this a Worker's Comp case?: No [facility] History - Hepatitis A
[2020-12-21 11:33] LABS: UTC Strep Screen (Rapid) Negative (Negative)
[2020-12-21 11:39] VITALS: BP 141/88; PULSE 81; RESP 18; TEMP 37; O2SAT 98
== END 2020-12-21 11:43 | disposition home or self-care (01) ==
PROVIDERS: Emergency Provider Nurse Practitioner; PCP Physician Assistant
DX: J30.9 Allergic rhinitis, unspecified (principal)
CPT/HCPCS: 87880; 99202; G0463

== ENCOUNTER 2021-01-02 22:45 | Emergency (ER) | payer MEDICAID, SELFPAY ==
[2021-01-02 22:46] VITALS: BP 143/81; PULSE 66; RESP 16; TEMP 36.8; O2SAT 98; BMI 47.7
--- NOTE | 2021-01-02 23:06 | HMH.EDGENADL ---
ED Disposition Clinical Impression: Bite by animal Laceration of face Qualifiers: Encounter type: initial encounter Qualified Code(s): S01.81XA - Laceration without foreign body of other part of head, initial encounter Disposition: Home, Self-Care Condition on Discharge: Good Instructions: Animal Bites Prescriptions: Amoxicillin/Potassium Clav [Augmentin 875-125 Tablet] 1 tab PO Q12H #6 tab Transmission Status: Pending to [id number] Referrals: Lianet Bose PA [Primary Care Provider] - - Critical Care Critical Care Time: No Attestation: On 01/02/21, the high probability of a clinically significant, sudden or life threatening deterioration of the following system(s) required my full and direct attention, intervention and personal management. The time I documented below is in addition to time spent performing reported procedures but includes the following listed in this critical care notation. Medical Decision Making - Medical Records Medical records reviewed: Yes: I reviewed the patient's medical records. - Kings Inquiry Pt receiving controlled substance: No Vital Signs: 01/02/21 22:46 Temperature 98.3 F Temperature Source Oral Pulse Rate [Left] 66 Respiratory Rate 16 Blood Pressure [Right Arm] 143/81 H Blood Pressure Mean [Right Arm] 101 02 Sat by Pulse Oximetry 98 Oxygen Delivery Method Room Air Medical Decision Narrative: Patient is a 40-year-old female presents the ED today for further evaluation of dog bite laceration to the face. Patient is well-appearing on initial evaluation no acute distress with stable vital signs, patient's laceration is simple, not very deep, not through and through, does not involve the vermilion border. Will perform simple laceration repair, prescribe antibiotics p.o. for 5 days and discharged. Laceration repaired with no difficulty, patient given laceration repair instructions, guidelines to look out for in case of infection, return precautions, and instructions to make sure the stitches are out within 7 days. Patient is verbalized understanding with this plan her questions answered and concerns addressed. General Adult HPI - General Chief complaint: Animal Bite Stated complaint: ao 01/02@2230 dog bite lip Time Seen by Provider: 01/02/21 23:00 Mode of Arrival: Ambulatory Limitations: No Limitations Description of Symptoms (Recalled from ER Triage Doc. by RN): pt was in bed, dog wast startled and nipped and got her in the face. small laceration midline above lip with abrassions on the nose as well - History of Present Illness HPI narrative: Patient is a 40-year-old female with hypothyroidism who presents the ED today after being accidentally bitten on the face by her dog, this is a family dog, up-to-date on vaccinations, patient states that something fell in the house the dog got spooked and clot in bit up in the air, is with him sitting on her lap excellently bit her on the face. Patient has a linear subcentimeter laceration on the upper lip in the midline vertical incision. Does not go through and through, patient placed a towel over to control bleeding. - Related Data Home Medications Medication Instructions Recorded Confirmed Levothyroxine Sodium [Synthroid] 75 mcg PO DAILY 10/11/20 10/13/20 Previous Rx's Medication Instructions Recorded Phenazopyridine HCl [Pyridium 200 pow PO TID #6 tab 10/11/20 200mg Tablet] Sulfamethoxazole/Trimethoprim 1 each PO BID 7 Days #14 tab 10/11/20 [Bactrim DS tablet] cholecalciferol (vitamin D3) 25 25 mcg PO DAILY #30 cap 10/15/20 mcg (1,000 unit) capsule ergocalciferol (vitamin D2) 1,250 1,250 mcg PO WEEKLY #5 cap 10/15/20 mcg (50,000 unit) capsule Fluticasone Propionate [Flonase 1 spr NS DAILY #1 each 12/21/20 50mcg nasal spray 16gm] Amoxicillin/Potassium Clav 1 tab PO Q12H #6 tab 01/02/21 [Augmentin 875-125 Tablet] Allergies Allergy/AdvReac Type Severity Reaction S
[2021-01-02 23:18] VITALS: BP 139/81; PULSE 62; RESP 14; TEMP 36.8; O2SAT 98
== END 2021-01-02 23:20 | disposition home or self-care (01) ==
PROVIDERS: Emergency Provider Student in an Organized Health Care Education/Training Program; PCP Physician Assistant
DX: S01.81XA Laceration without foreign body of other part of head, initial encounter (principal); W54.0XXA Bitten by dog, initial encounter; Y92.019 Unspecified place in single-family (private) house as the place of occurrence of the external cause; E03.9 Hypothyroidism, unspecified; F41.8 Other specified anxiety disorders
CPT/HCPCS: 12011; 99282

== ENCOUNTER 2021-02-16 13:08 | Emergency (ER) | payer MEDICAID, SELFPAY ==
[2021-02-16 13:16] VITALS: BP 128/78; PULSE 72; RESP 18; TEMP 36.9; O2SAT 98; BMI 22.4
[2021-02-16 13:26] LABS: Apearance,Urine Cloudy (Clear); Bilirubin,Urine Negative (Negative); Blood, Urine 2+ (Negative); Color,Urine Yellow (Yellow); Glucose,Urine (UA) Negative (Negative); Ketones,Urine Negative (Negative); Protein,Urine Negative (Negative); Urobilinogen,Urine 0.2 EU/dl (0.2)
[2021-02-16 13:27] LABS: UTC Leukocyte Esterase,Urine 1+ (Negative); UTC Nitrate,Urine Negative (Negative)
--- NOTE | 2021-02-16 13:27 | HMH.EDUTC ---
[facility] [place] Disposition Clinical Impression: UTI (urinary tract infection) Qualifiers: Urinary tract infection type: site unspecified Hematuria presence: with hematuria Qualified Code(s): N39.0 - Urinary tract infection, site not specified; R31.9 - Hematuria, unspecified Disposition: Home, Self-Care Condition on Discharge: Good Instructions: DI for Urinary Tract Infection (UTI), Trimethoprim/Sulfamethoxazole (Alternative Therapy), Urinary Tract Infection Additional Instructions: *Increase fluids. Water not Soda or Tea *Start antibiotic immediately and be sure to take as ordered for the FULL length of time although you should start to see improvement over the next 48 hours *Pyridium as needed Remember this medication will turn your urine Bandera. This is normal but it will stain what ever it gets on *You should not use Pyridium for more than 48 hours. If so , follow up with your primary physician to review urine culture and ensure that antibiotic is adequate for infection *Be SURE to follow up anytime for new or worsening symptoms with your family doctor. AND in 48 hours for urine culture results with your family doctor, if you do not have a doctor then you may call back to the [facility] for urine culture results and further treatment. We do recommend that you choose and establish care with a Primary Care Physician. AND follow up with them in 10-14 days to repeat UA to ensure infection is resolved and blood no longer present *Be sure to let your PCP know that we sent urine cultures from the [facility] so they can follow up to ensure that you area the on the correct antibiotic Call your doctor office and make appointment for 48 hours (2 days from today) to follow up and get the results of your urine culture and further treatment Prescriptions: Sulfamethoxazole/Trimethoprim [Bactrim DS tablet] 1 each PO BID 10 Days #20 tab Transmission Status: Pending to [id number] Phenazopyridine HCl [Pyridium 200mg Tablet] 200 pow PO TID #6 tab Transmission Status: Pending to [facility] Referrals: Lianet Bose PA [Primary Care Provider] - As needed Medical Decision Making - Kings Inquiry Pt receiving controlled substance: No Kings was queried for this patient: No Vital Signs: 02/16/21 13:16 Temperature 98.5 F Temperature Source Oral Pulse Rate [Left] 72 Respiratory Rate 18 Blood Pressure [Right Arm] 128/78 Blood Pressure Mean [Right Arm] 94 02 Sat by Pulse Oximetry 98 - Lab Data Lab results reviewed: Yes: I reviewed the patient's lab results. Lab Results 02/16/21 13:22: Urine Color Yellow, Urine Appearance Cloudy, Urine pH 6.0, Ur Specific [place] 1.010, Urine Protein Negative, Urine Glucose (UA) Negative, Urine Ketones Negative, Urine Blood 2+, Urine Nitrate Negative, Urine Bilirubin Negative, Urine Urobilinogen 0.2, Ur Leukocyte Esterase 1+ A Orders (Tests/Meds): ORDERS Category Date Time Status Urine Culture Stat Micro 02/16/21 13:22 Ordered [facility] [place] HPI - General Stated complaint: possible UTI Time Seen by Provider: 02/16/21 13:27 Mode of Arrival: Ambulatory Source of Information: Patient Limitations: No Limitations Description of Symptoms (Recalled from Triage Doc. by RN): pt c/o burning and pressure with urination. HEENT Symptoms (Recalled from RN notes): No Resp Symptoms (Recalled from RN notes): No Skin Symptoms (Recalled from RN notes): No MS Symptoms (Recalled from RN notes): No Functional Status (Recalled from RN notes): wnl - History of Present Illness Provider Complaint: Patient states that she feels like she is getting a uti States that she has been having achy like feeling in her lower back area along with feeling of urgency and freqency States that she noticed she had some blood in her urine again like she gets when she gets UTI so she came in to get checked - Related Data Home Medications Medication Instructions Recorded Confirmed Levothyroxine Sodium [Synthroid] 75 mcg
[2021-02-16 13:29] VITALS: BP 128/78; PULSE 72; RESP 18; TEMP 36.9
== END 2021-02-16 13:59 | disposition home or self-care (01) ==
PROVIDERS: Emergency Provider Nurse Practitioner; PCP Physician Assistant
DX: N30.01 Acute cystitis with hematuria (principal); B96.20 Unspecified Escherichia coli [E. coli] as the cause of diseases classified elsewhere; F41.8 Other specified anxiety disorders
CPT/HCPCS: 81003; 87086; 87088; 87186; 96372; 99202; G0463

== ENCOUNTER → 2021-04-20 16:00 | Outpatient (CLI) | payer MEDICAID, SELFPAY | PROVIDERS: Visit Provider Nurse Practitioner Family | DX: N39.0 Urinary tract infection, site not specified (principal) | CPT/HCPCS: 87086 ==

== ENCOUNTER → 2021-05-11 18:04 | Outpatient (CLI) | payer MEDICAID, SELFPAY | PROVIDERS: Visit Provider Nurse Practitioner Family | DX: N39.0 Urinary tract infection, site not specified (principal); B96.20 Unspecified Escherichia coli [E. coli] as the cause of diseases classified elsewhere | CPT/HCPCS: 87086; 87088; 87186 ==

== ENCOUNTER → 2021-05-24 16:19 | Outpatient (CLI) | payer MEDICAID, SELFPAY ==
[2021-05-24 13:25] LABS: Basophils % 0.6 % (0.1-2.0); Eosinophils # 0.1 K/mm3 (0.0-0.4); Eosinophils % 0.9 % (0.1-12.0); Hematocrit 42.6 % (37.0-47.0); Hemoglobin 13.7 g/dL (12.2-16.2); Lymphocytes # 1.9 K/mm3 (0.7-4.5); Lymphocytes % 31.3 % (10-50); Mean Corpuscular HGB Conc 32.2 g/dL (31.8-35.4); Mean Corpuscular Hemoglobin 30.1 pg (27.0-31.2); Mean Corpuscular Volume 93.3 fl (81-99); Mean Platelet Volume 8.5 fl (7.4-10.4); Monocytes # 0.2 K/mm3 (0.1-1.0); Monocytes % 3.5 % (1.7-9.3); Neutrophils # 3.8 K/mm3 (1.8-7.8); Neutrophils % 63.7 % (37.0-80.0); Platelet Count 429 K/mm3 (142-424); Red Blood Count 4.57 M/mm3 (4.20-5.40); Red Cell Distribution Width 13.6 % (11.5-17.5)
[2021-05-24 13:39] LABS: Alanine Aminotransferase 14 U/L (12-78); Albumin Level 4.6 g/dl (3.5-5.0); Albumin/Globulin Ratio 1.6 (1.1-1.8); Alkaline Phosphatase 69 U/L (38-126); Anion Gap 16.1 mEq/L (5-15); Aspartate Amino Transferase 23 U/L (14-36); Bilirubin,Total 0.7 mg/dl (0.2-1.3); Blood Urea Nitrogen 9 mg/dl (7-17); Calcium 9.1 mg/dl (8.4-10.2); Carbon Dioxide 24 mmol/L (22.0-30.0); Chloride 104 mmol/L (98-107); Chol/HDL Ratio 4.6 (1-3.5); Cholesterol 192 mg/dl (140-200); Estimated Glomerular Filt Rate 92 ml/min (>60); GFR (African American) 112 ML/MIN (>60); Globulin 2.8 g/dL (1.3-3.2); Glucose 80 mg/dl (74-100); HDL Cholesterol 42 mg/dl (40-60); Potassium 4.1 mmoL/L (3.5-5.1); Sodium 140 mmol/L (136-145); Total Protein,Serum 7.4 g/dl (6.3-8.2); Triglycerides 130 mg/dl (30-150); VLDL Cholesterol 26 mg/dL (0-40)
[2021-05-24 13:47] LABS: C-Reactive Protein 2.2 mg/L (0-4)
[2021-05-24 13:57] LABS: T4 (Thyroxine) 10.6 ug/dl (5.53-11.0)
[2021-05-24 13:58] LABS: Direct LDL Cholesterol 106.66 mg/dL (100-129)
[2021-05-24 14:00] LABS: Erythrocyte Sedimentation Rate 18 mm/hr (0-20)
[2021-05-24 14:10] LABS: Thyroid Stimulating Hormone 3.76 uIU/mL (0.465-4.68)
[2021-05-24 17:44] LABS: Vitamin B12 > 1000 pg/mL (239-931)
[2021-05-25 08:47] LABS: RA Latex Turbid. <10.0 IU/mL (<14.0); Thyroid Peroxidase Antibodies 204 IU/mL (0-34)
[2021-05-25 13:12] LABS: Anti-Centromere B Antibodies <0.2 AI (0.0-0.9); Anti-DNA (DS) Ab Qn 1 IU/mL (0-9); Anti-Jo-1 <0.2 AI (0.0-0.9); Anti-Smith Antibody <0.2 AI (0.0-0.9); Antichromatin Antibodies <0.2 AI (0.0-0.9); Antiscleroderma-70 Antibodies <0.2 AI (0.0-0.9); RNP Antibodies <0.2 AI (0.0-0.9); Sjogren's Anti-SS-A <0.2 AI (0.0-0.9); Sjogren's Anti-SS-B <0.2 AI (0.0-0.9)
[2021-05-25 23:16] LABS: Anti-Cyclic Citrullinated Pept 7 units (0-19)
[2021-05-26 07:12] LABS: Thyroid Stimulating Immunoglob <0.10 IU/L (0.00-0.55)
== END ==
PROVIDERS: Visit Provider Physician Assistant
DX: R00.2 Palpitations (principal); E06.3 Autoimmune thyroiditis; M25.40 Effusion, unspecified joint
CPT/HCPCS: 80053; 80061; 82306; 82607; 84436; 84443; 84445; 85025; 85651; 86140; 86200; 86225; 86235; 86376; 86431

== ENCOUNTER 2021-10-24 08:02 | Emergency (ER) | payer MEDICAID, SELFPAY ==
[2021-10-24 08:15] VITALS: BP 138/78; PULSE 96; RESP 19; TEMP 37.9; O2SAT 95; BMI 20.2
[2021-10-24 08:33] LABS: UTC Strep Screen (Rapid) Negative (Negative)
--- NOTE | 2021-10-24 08:34 | HMH.EDUTC ---
[facility] [place] Disposition Clinical Impression: URI (upper respiratory infection) Qualifiers: URI type: unspecified URI Qualified Code(s): J06.9 - Acute upper respiratory infection, unspecified Disposition: Home, Self-Care Condition on Discharge: Good Instructions: Sore Throat, DI for Fever (Symptom) -- Adult Additional Instructions: *Monitor Temp, Over the counter Motrin or Tylenol as directed/as needed Tylenol every 4 hours and Motrin every 6 hours (as long as your family doctor has told you that you can take it) for fever or pain. and straight to ER if unable to lower temp less than 101.0 after medication given *Warm salt water gargles may help to soothe the throat *Throat Lozenges *Warm fluids like tea with honey may help to soothe the throat *Sleep elevated *Humidifier/Vaporizer Your throat swab was sent for culture. Those results are typically sent to your primary care. Be sure to follow up in 2-3 days with your family doctor/primary care physician if no improvement so they can review those result and treat if necessary. If you don?t have a primary care doctor, I recommend you get one but in the mean time, you will have to return to a walk in clinic Follow up IMMEDIATELY for new or worsening symptoms or no Noticeable improvement over the next 48-72 hours. 911 for difficulty breathing or swallowing You were tested for today for COVID19 your test result should be back in the next 24-48 hours, you check your results on the [facility] My Health Portal Make sure to take your Vitamins Vit. C Vit D and Zinc if you can take them Referrals: Lianet Bose PA [Primary Care Provider] - As needed Forms: Work/School Release Medical Decision Making - Kings Inquiry Pt receiving controlled substance: No Kings was queried for this patient: No Vital Signs: 10/24/21 08:15 Temperature 100.3 F H Temperature Source Oral Pulse Rate [Left Brachial] 96 H Respiratory Rate 19 Blood Pressure [Left Arm] 138/78 Blood Pressure Mean [Left Arm] 98 Blood Pressure Source [Left Arm] Automatic Cuff Blood Pressure Position [Left Arm] Sitting 02 Sat by Pulse Oximetry 95 Oxygen Delivery Method Room Air - Lab Data Lab results reviewed: Yes: I reviewed the patient's lab results. Lab Results 10/24/21 08:22: Strep Scn Rapid Clinic Negative Orders (Tests/Meds): ORDERS Category Date Time Status Covid-19 Nasal PCR ([facility]) Routine Lab 10/24/21 08:34 Ordered Strep Screen Confirmation Stat Micro 10/24/21 08:22 Received [facility] [place] HPI - General Stated complaint: throats sore Time Seen by Provider: 10/24/21 08:20 Mode of Arrival: Ambulatory Source of Information: Patient Limitations: No Limitations Description of Symptoms (Recalled from Triage Doc. by RN): PATIENT C/O FEVER AND BODY ACHES YESTERDAY AND SORE THROAT SINCE SUNDAY HEENT Symptoms (Recalled from RN notes): Yes Resp Symptoms (Recalled from RN notes): No Skin Symptoms (Recalled from RN notes): No MS Symptoms (Recalled from RN notes): No Functional Status (Recalled from RN notes): WNL - History of Present Illness Provider Complaint: Patient states that she started feeling bad on Sunday with bodyaches, chills, and fever States that she has continued to feel bad all weekend so today when she was still having the symptoms she came in to get checked out - Related Data Home Medications Medication Instructions Recorded Confirmed Levothyroxine Sodium [Synthroid 50 mcg PO DAILY 10/24/21 10/24/21 50mcg (0.05mg) tab] Allergies Allergy/AdvReac Type Severity Reaction Status Date / Time No Known Allergies Allergy Verified 06/15/21 15:56 - Worker's Comp Is this a Worker's Comp case?: No [facility] History - Hepatitis A Screen Attestation statement:: This patient has been screened for Hepatitis A risk factors. I have reviewed the patient's past medical history: Yes Medical History: Reports:: Anxiety, Depression, Urinary Tract Infection Other Medical History: Re
[2021-10-24 08:48] VITALS: BP 138/78; PULSE 96; RESP 19; TEMP 37.9; O2SAT 95
== END 2021-10-24 08:52 | disposition home or self-care (01) ==
PROVIDERS: Emergency Provider Nurse Practitioner; PCP Physician Assistant
DX: J06.9 Acute upper respiratory infection, unspecified (principal); J02.9 Acute pharyngitis, unspecified; Z20.822 Contact with and (suspected) exposure to COVID-19
CPT/HCPCS: 87880; 99212; C9803; G0463; U0003; U0005

== ENCOUNTER → 2021-12-21 12:45 | Outpatient (CLI) | payer MEDICAID, SELFPAY ==
--- NOTE | 2021-12-21 12:45 | MM_ITS ---
PROCEDURE INFORMATION: Exam: MG Bilateral Screening 3D Mammography Exam date and time: 12/21/2021 12:48 PM Age: 41 years old Clinical indication: Screening examination. Several great aunts had breast cancer. TECHNIQUE: Imaging protocol: Bilateral Screening tomosynthesis and 2D mammography including computer-aided detection (CAD) when performed. COMPARISON: 1. MG MM DIG SCREENING MAMM BI W/CAD 12/20/2020 3:27 PM 2. MG MM DIG MAMM DX UNILAT RT CAD 01/07/2020 1:51 PM 3. MG MM DIG SCREENING MAMM BI W/CAD 12/18/2019 10:25 AM 4. US BREAST RT COMPLETE 01/07/2020 2:20 PM FINDINGS: MAMMOGRAPHY: Breast composition: The breasts are heterogeneously dense, which may obscure small masses. Mass: No suspicious mass. Architectural distortion: None. Calcifications: No suspicious calcifications. Asymmetric density: None. Skin thickening: None. Axillary adenopathy: None. IMPRESSION: No mammographic evidence of malignancy. Annual screening is recommended unless otherwise clinically indicated. ASSESSMENT: BI-RADS Category 1: Negative
== END ==
PROVIDERS: PCP Physician Assistant; Visit Provider Physician Assistant
DX: Z12.31 Encounter for screening mammogram for malignant neoplasm of breast (principal)
CPT/HCPCS: 77063; 77067

== ENCOUNTER → 2022-02-14 13:00 | Outpatient (CLI) | payer MEDICAID, SELFPAY | PROVIDERS: PCP Student in an Organized Health Care Education/Training Program; Visit Provider Student in an Organized Health Care Education/Training Program | DX: J02.9 Acute pharyngitis, unspecified (principal) ==

== ENCOUNTER → 2022-02-14 13:38 | Outpatient (CLI) | payer MEDICAID, SELFPAY ==
--- NOTE | 2022-02-14 13:44 | XR_ITS ---
FINAL REPORT TECHNIQUE: Chest PA & Lateral CLINICAL HISTORY: cough COMPARISON: December 2018 FINDINGS: 2 views of the chest were performed. The heart size is normal. The mediastinum is within normal limits. There is no acute cardiopulmonary process. There are no pleural effusions. There is no pneumothorax. There is mild rightward curvature of the thoracic spine. IMPRESSION: No acute cardiopulmonary process. Reviewed, Interpreted and Dictated by Mikhail Duarte III, MD Transcribed by Roger Fleming Authenticated and [facility]
[2022-02-14 17:47] LABS: Adenovirus,PCR Not Detected (NotDetected); Bordetella Pertussis Not Detected (NotDetected); Chlamydophila Pneumoniae, PCR Not Detected (NotDetected); Coronavirus 19, PCR Not Detected (NotDetected); Coronavirus 229E Not Detected (NotDetected); Coronavirus NL63 Not Detected (NotDetected); Coronavirus OC43 Not Detected (NotDetected); Coronovirus HKU1,PCR Not Detected (NotDetected); Human Metapneumovirus Not Detected (NotDetected); Influenza A, PCR Not Detected (NotDetected); Influenza AH1, 2009 Not Detected (NotDetected); Influenza AH1, PCR Not Detected (NotDetected); Influenza AH3,PCR Not Detected (NotDetected); Influenza B, PCR Not Detected (NotDetected); Mycoplasma Pneumoniae, PCR Not Detected (NotDetected); Parainfluenza 1, PCR Not Detected (NotDetected); Parainfluenza 2, PCR Not Detected (NotDetected); Parainfluenza 3, PCR Not Detected (NotDetected); Parainfluenza 4, PCR Not Detected (NotDetected); Rhinovirus/Enterovirus Not Detected (NotDetected)
[2022-02-15 02:21] LABS: Respiratory Syncytial Virus Detected (NotDetected)
== END ==
PROVIDERS: PCP Physician Assistant; Visit Provider Student in an Organized Health Care Education/Training Program
DX: R05.9 Cough, unspecified (principal); J02.9 Acute pharyngitis, unspecified; J32.9 Chronic sinusitis, unspecified; B97.4 Respiratory syncytial virus as the cause of diseases classified elsewhere
CPT/HCPCS: 71046; 87581; 87632; 87798; C9803; U0003; U0005

== ENCOUNTER → 2022-05-24 22:37 | Outpatient (CLI) | payer MEDICAID, SELFPAY ==
[2022-05-24 18:18] LABS: Alanine Aminotransferase 13 U/L (12-78); Albumin Level 4.6 g/dl (3.5-5.0); Albumin/Globulin Ratio 1.7 (1.1-1.8); Alkaline Phosphatase 67 U/L (38-126); Anion Gap 11.9 mEq/L (5-15); Aspartate Amino Transferase 21 U/L (14-36); Bilirubin,Total 0.6 mg/dl (0.2-1.3); Blood Urea Nitrogen 9 mg/dl (7-17); Calcium 8.8 mg/dl (8.4-10.2); Carbon Dioxide 26 mmol/L (22.0-30.0); Chloride 103 mmol/L (98-107); Chol/HDL Ratio 4.3 (1-3.5); Cholesterol 197 mg/dl (140-200); Estimated Glomerular Filt Rate 92 ml/min (>60); GFR (African American) 111 ML/MIN (>60); Globulin 2.7 g/dL (1.3-3.2); Glucose 80 mg/dl (74-100); HDL Cholesterol 46 mg/dl (40-60); Potassium 3.9 mmoL/L (3.5-5.1); Sodium 137 mmol/L (136-145); Total Protein,Serum 7.3 g/dl (6.3-8.2); Triglycerides 133 mg/dl (30-150); VLDL Cholesterol 27 mg/dL (0-40)
[2022-05-24 18:26] LABS: Basophils # 0.1 K/mm3 (0-0.2); Basophils % 0.8 % (0.1-2.0); Eosinophils % 0.2 % (0.1-12.0); Hematocrit 43.5 % (37.0-47.0); Hemoglobin 14.3 g/dL (12.2-16.2); Lymphocytes # 2.5 K/mm3 (0.7-4.5); Lymphocytes % 29.1 % (10-50); Mean Corpuscular Hemoglobin 29.7 pg (27.0-31.2); Mean Corpuscular Volume 90.2 fl (81-99); Monocytes # 0.4 K/mm3 (0.1-1.0); Monocytes % 4.4 % (1.7-9.3); Neutrophils # 5.6 K/mm3 (1.8-7.8); Neutrophils % 65.5 % (37.0-80.0); Platelet Count 370 K/mm3 (142-424); Red Blood Count 4.82 M/mm3 (4.20-5.40); Red Cell Distribution Width 13.1 % (11.5-17.5); White Blood Count 8.5 K/mm3 (4.8-10.8)
[2022-05-24 18:29] LABS: Direct LDL Cholesterol 121.38 mg/dL (100-129)
[2022-05-24 18:35] LABS: 25-OH Vitamin D, Total 39.4 ng/mL (30-100)
[2022-05-24 18:48] LABS: Thyroid Stimulating Hormone 3.73 uIU/mL (0.465-4.68)
[2022-05-26 17:07] LABS: Anti-DNA (DS) Ab Qn 1 IU/mL (0-9)
== END ==
PROVIDERS: PCP Physician Assistant; Visit Provider Physician Assistant
DX: R00.2 Palpitations (principal); E06.3 Autoimmune thyroiditis; M25.40 Effusion, unspecified joint; E03.9 Hypothyroidism, unspecified
CPT/HCPCS: 80053; 80061; 82306; 84443; 85025; 86225

== ENCOUNTER → 2022-06-01 13:55 | Outpatient (CLI) | payer MEDICAID, SELFPAY ==
--- NOTE | 2022-06-01 13:55 | US_ITS ---
FINAL REPORT TECHNIQUE: Limited sonographic images of the thyroid were obtained. 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 There is a small amount of thyroid tissue seen on the left, may be related to small residual thyroid. There is a large heterogeneous region in the right lobe of the thyroid which comprises the majority of the right lobe of the thyroid measuring 1.4 x 1.5 cm, may represent a dominant nodule. IMPRESSION: TI-RADS 3 lesion in the right thyroid lobe measuring 1.4 x 1.5 cm. Recommend biopsy. Reviewed, Interpreted and Dictated by Javy Bond MD Transcribed by Kay Peraza Authenticated and [facility]
== END ==
PROVIDERS: PCP Physician Assistant; Visit Provider Physician Assistant
DX: E06.3 Autoimmune thyroiditis (principal)
CPT/HCPCS: 76536

== ENCOUNTER → 2022-06-14 08:54 | Outpatient (CLI) | payer MEDICAID, SELFPAY ==
--- NOTE | 2022-06-14 08:54 | US_ITS ---
FINAL REPORT CLINICAL HISTORY: .rt thyroid fna--- miguel angel eagle FINDINGS: ULTRASOUND GUIDED RIGHT THYROID BIOPSY HISTORY: Right thyroid nodule. ATTENDING PHYSICIAN: Dr. Varun MD PHYSICIAN INSERT MOLDING OPERATOR: Juju Rabago PA-C PROCEDURE: Informed consent was obtained from the patient. A time out procedure was performed. Ultrasound was utilized to localize the dominant right thyroid nodule. Patient was prepped and draped in the usual sterile fashion over the right neck. 1% Lidocaine was utilized for local anesthesia. Three 25-gauge FNA passes were made of the right thyroid nodule using ultrasound guidance. Tissue samples were placed in Cytolyt and sent to the lab for analysis. Patient tolerated the procedure well and left the department in good condition. IMPRESSION: Technically successful ultrasound-guided FNA of a dominant right thyroid nodule, as described. Reviewed, Interpreted and Dictated by Javy Bond MD Transcribed by Juju Rabago PA-C Authenticated and [facility]
== END ==
PROVIDERS: PCP Physician Assistant; Visit Provider Physician Assistant
DX: E04.1 Nontoxic single thyroid nodule (principal)
CPT/HCPCS: 10005

== ENCOUNTER → 2022-12-22 10:20 | Outpatient (CLI) | payer MEDICAID, SELFPAY ==
--- NOTE | 2022-12-22 10:20 | MM_ITS ---
PROCEDURE INFORMATION: Exam: MG Bilateral Screening 3D Mammography Exam date and time: 12/22/2022 10:13 AM Age: 42 years old Clinical indication: Screening mammogram TECHNIQUE: Imaging protocol: Bilateral Screening tomosynthesis and 2D mammography including computer-aided detection (CAD) when performed. COMPARISON: 1. MG MM DIG SCREENING MAMM BI W/CAD 12/21/2021 12:48 PM 2. MG MM DIG SCREENING MAMM BI W/CAD 12/20/2020 3:27 PM 3. MG MM DIG MAMM DX UNILAT RT CAD 01/07/2020 1:51 PM 4. MG MM DIG SCREENING MAMM BI W/CAD 12/18/2019 10:25 AM FINDINGS: MAMMOGRAPHY: Breast composition: The breast is heterogeneously dense, which may obscure small masses. Mass: None. Architectural distortion: No new or suspicious architectural distortion. Calcifications: No new or suspicious calcifications are present Asymmetric density: No new or suspicious asymmetric density is present Skin thickening: None. Axillary adenopathy: None. IMPRESSION: No mammographic evidence of malignancy. Recommend annual screening mammography unless otherwise clinically indicated. ASSESSMENT: BI-RADS category 1: Negative
== END ==
PROVIDERS: PCP Physician Assistant; Visit Provider Physician Assistant
DX: Z12.31 Encounter for screening mammogram for malignant neoplasm of breast (principal)
CPT/HCPCS: 77063; 77067

== ENCOUNTER 2023-05-01 13:09 | Outpatient (CLI) | payer SELFPAY | END 2023-05-01 14:17 | disposition home or self-care (01) | LOC: UTC.OUT 13:10 | PROVIDERS: PCP Physician Assistant; Visit Provider Physician Assistant | DX: Z02.1 Encounter for pre-employment examination (principal) ==

== ENCOUNTER 2023-05-18 12:53 | Outpatient (CLI) | payer MEDICAID, SELFPAY ==
[2023-05-18 13:23] VITALS: BMI 20.2
[2023-05-18] MEDS: TUBERCULIN 5 UNITS/0.1ML 1ML VIAL ID (13:26)
== END 2023-05-18 13:33 | disposition home or self-care (01) ==
PROVIDERS: PCP Physician Assistant; Visit Provider Nurse Practitioner Family
DX: Z11.1 Encounter for screening for respiratory tuberculosis (principal)
CPT/HCPCS: 86580

== ENCOUNTER 2023-08-11 15:29 | Emergency (ER) | payer MEDICAID, SELFPAY ==
[2023-08-11 15:30] VITALS: BP 131/80; PULSE 93; RESP 18; TEMP 37.2; O2SAT 96; BMI 20.7
--- NOTE | 2023-08-11 16:07 | EXP.UTC ---
Discharge Plan Disposition Patient Disposition: Home, Self-Care Condition: Good Prescriptions Prescriptions: New azithromycin [Zithromax] 250 mg tablet 250 mg PO UD DOSE PK Qty: 6 0RF Rx Instructions: Take two (2) tablets today, then one (1) tablet days #2 thru #5 benzonatate 100 mg capsule 100 mg PO TIDP PRN (Reason: Cough) Qty: 30 0RF methylprednisolone 4 mg Tablets,Dose Pack 4 mg PO DIRECTED 6 Days Qty: 21 0RF Rx Instructions: Take 1 pack as directed for 6 days guaifenesin [Mucinex] 600 mg tablet extended release 12hr 600 - 1,200 mg PO BIDP PRN (Reason: Congestion) Qty: 30 0RF No Action omeprazole 40 mg capsule,delayed release(DR/EC) 40 mg PO DAILY Qty: 90 0RF Rx Instructions: swallow whole; do not crush, chew, dissolve, cut, break levothyroxine [Synthroid] 75 mcg tablet 75 mcg PO DAILY Qty: 90 3RF Referrals Follow up/Referrals: Lianet Bose PA [Primary Care Provider] - See instructions Activity Restrictions/Add. Instructions Additional Instructions/Restrictions: Drink plenty of fluids. Take tylenol or ibuprofen for pain or fever. Take the medications as directed. Follow up with your regular doctor. GO TO THE ER FOR ANY WORSENING SYMPTOMS Don't start the oral steroids until tomorrow since you had the steroid shot here today. Clinical Impressions Clinical Impression: Acute bronchitis Instructions Patient Instructions: DI for Acute Bronchitis, Dexamethasone Injection Discharge ED Provider: Slava Porter [facility] General Stated complaint: cough, SOA Time Seen by Provider: 08/11/23 16:07 Related Data Previous Rx's Medication Instructions Recorded Synthroid 75 mcg tablet 75 mcg PO DAILY #90 tabs 05/28/23 (levothyroxine) omeprazole 40 mg capsule,delayed 40 mg PO DAILY #90 caps 05/28/23 release azithromycin 250 mg tablet 250 mg PO UD DOSE PK #6 tabs 08/11/23 (Zithromax) benzonatate 100 mg capsule 100 mg PO TIDP PRN Cough #30 caps 08/11/23 guaifenesin 600 mg tablet, 600 - 1,200 mg (1 - 2 x 600 mg) PO 08/11/23 extended release 12 hr (Mucinex) BIDP PRN Congestion #30 tabs methylprednisolone 4 mg tablets in 4 mg PO DIRECTED 6 days #21 tabs 08/11/23 a dose pack Allergies Allergy/AdvReac Type Severity Reaction Status Date / Time No Known Allergies Allergy Verified 08/11/23 16:10 [facility] Disclaimer: The information contained in this section may have been updated after the patient was seen, as this information can be updated by other users. Medical History Alex's thyroiditis Social History Smoking Status: Never smoker alcohol intake: never substance use type: denies use current occupational status: other Travel in the last 8 weeks: None household members: spouse and family housing: house ROS Obtained: Yes All systems reviewed & no additional complaints except as documented Constitutional Constitutional: Reports poor appetite Eyes Eyes: Reports system reviewed and no additional complaints, except as documented ENT Ears, Nose, Mouth, and Throat: Reports as per HPI Cardiovascular Cardiovascular: Reports system reviewed and no additional complaints, except as documented and Denies chest pain Respiratory Respiratory: Denies shortness of breath, Reports chest congestion, Reports cough, Denies stridor and Denies wheezing Gastrointestinal Gastrointestingal: Reports system reviewed and no additional complaints, except as documented; Denies abdominal pain, diarrhea or vomiting Musculoskeletal Musculoskeletal: Reports system reviewed and no additional complaints, except as documented and Denies arthralgias Integumentary/Breasts Skin/Breast: Reports system reviewed and no additional complaints, except as documented and Denies rash Neurologic Neurologic: Denies paresthesias Allergic/Immunologic Allergic/Immunologic: Denies wheezing Physical Exam General General appearance: alert and in no apparent distress Head Head exam: atraumatic, normocephalic and normal inspection Eye Eye exam: Present normal appearance, PERRL and EOMI ENT ENT exam: Present normal exam, normal oropharynx, mucous membranes moist, TM's normal bilaterally and normal external ear exam Neck Neck exam: Present normal inspection, full ROM and trachea midline; Absent meningismus or lymphadenopathy Chest Chest inspection: Present normal inspection and symmetric chest wall rise; Absent tenderness Respiratory Respiratory exam: Present normal lung sounds bilaterally; Absent respiratory distress Cardiovascular Cardiovascular exam: Present regular rate and normal rhythm; Absent JVD Abdominal Exam Abdominal exam: Present soft and normal bowel sounds; Absent distention, tenderness or guarding Extremities Exam Extremities exam: Present normal inspection, full ROM and normal capillary refill; Absent calf tenderness Back Exam Back exam: Present normal inspection; Absent tenderness Neurological Exam Neurological exam: Present alert and oriented X3 Psychiatric Psychiatric exam: Present normal affect and normal mood Skin Skin exam: Present warm, dry, intact and normal color Lymphatic Lymphatic Findings: no adenopathy Medical Decision Making Medical Records Medical records reviewed: No I reviewed the patient's medical records. Kings Inquiry Pt receiving controlled substance: No
[2023-08-11] MEDS: DEXAMETHASONE 4MG/ML 1ML VIAL 8 MG IM (16:51)
[2023-08-11 17:10] VITALS: BP 131/80; PULSE 93; RESP 18; TEMP 37.2; O2SAT 96
== END 2023-08-11 17:10 | disposition home or self-care (01) ==
PROVIDERS: Emergency Provider Nurse Practitioner Family; PCP Physician Assistant
DX: J20.9 Acute bronchitis, unspecified (principal); R06.02 Shortness of breath; R05.9 Cough, unspecified
CPT/HCPCS: 99212; 99214; G0463

== ENCOUNTER 2023-12-25 16:51 | Outpatient (CLI) | payer MEDICAID, SELFPAY ==
--- NOTE | 2023-12-25 16:53 | MM_ITS ---
PROCEDURE INFORMATION: Exam: MG Bilateral Screening 3D Mammography Exam date and time: 12/25/2023 4:36 PM Age: 43 years old Clinical indication: Screening exam TECHNIQUE: Imaging protocol: Bilateral Screening tomosynthesis and 2D mammography including computer-aided detection (CAD) when performed. COMPARISON: 1. MG MM DIG SCREENING MAMM BI W/CAD 12/22/2022 10:13 AM 2. MG MM DIG SCREENING MAMM BI W/CAD 12/21/2021 12:48 PM FINDINGS: MAMMOGRAPHY: Breast composition: The breasts are heterogeneously dense, which may obscure small masses. Mass: 1.5 cm mass partially visualized in the left inframammary fold, possibly a skin lesion. Architectural distortion: None. Calcifications: No suspicious calcifications. Asymmetric density: None. Skin thickening: None. Axillary adenopathy: None. IMPRESSION: Partially visualized mass in the left inframammary fold. Recommend diagnostic left breast mammogram with MLO imaging with mole markers on any visible skin lesions. Left breast ultrasound is also recommended. ASSESSMENT: BI-RADS Category 0: Incomplete- Need Additional Imaging Evaluation.
== END 2023-12-25 23:59 | disposition home or self-care (01) ==
LOC: RAD 16:51
PROVIDERS: PCP Physician Assistant; Visit Provider Physician Assistant
DX: Z12.31 Encounter for screening mammogram for malignant neoplasm of breast (principal); N63.20 Unspecified lump in the left breast, unspecified quadrant
CPT/HCPCS: 77063; 77067

== ENCOUNTER 2024-03-06 14:26 | Outpatient (CLI) | payer MEDICAID, SELFPAY ==
--- NOTE | 2024-03-06 14:29 | MM_ITS ---
PROCEDURE INFORMATION: Exam: MG Left Diagnostic Breast Tomosynthesis Exam date and time: 03/06/2024 2:15 PM Age: 43 years old Clinical indication: Patient recalled on the basis of a screening mammogram for further evaluation; Left ; mass TECHNIQUE: Imaging protocol: Left Diagnostic tomosynthesis and 2D mammography including computer-aided detection (CAD) when performed. Unilateral or bilateral exam. COMPARISON: 1. MG MM DIG SCREENING MAMM BI W/CAD 12/25/2023 4:36 PM 2. MG MM DIG SCREENING MAMM BI W/CAD 12/22/2022 10:13 AM FINDINGS: MAMMOGRAPHY: Breast composition: The breasts are heterogeneously dense, which may obscure small masses. Breast mammogram findings: 90 degree lateral view of the left breast no longer demonstrates a previously noted partially visualized 1.5 cm mass in the skin below the breast. This may have reflected a sebaceous cyst. IMPRESSION: No mammographic evidence of malignancy. Annual bilateral mammographic screening is recommended unless otherwise clinically indicated. ASSESSMENT: BI-RADS Category 1: Negative.
--- NOTE | 2024-03-06 14:30 | US_ITS ---
FINAL REPORT CLINICAL HISTORY: .eval area noted on mamm, inf to lt breast upper abd FINDINGS: ULTRASOUND ABDOMINAL LIMITED Limited sonographic images of the soft tissues of the left upper quadrant were performed. No mass or lesion is identified. There is no fluid collection. IMPRESSION: No mass or lesion identified at the region of interest in the left upper quadrant. Reviewed, Interpreted and Dictated by Javy Bond MD Transcribed by Nika Chaney Authenticated and . [facility]
== END 2024-03-06 23:59 | disposition home or self-care (01) ==
LOC: RAD 14:27
PROVIDERS: PCP Physician Assistant; Visit Provider Physician Assistant
DX: R92.8 Other abnormal and inconclusive findings on diagnostic imaging of breast (principal)
CPT/HCPCS: 76705; 77061; 77065; G0279

== ENCOUNTER 2024-12-29 16:55 | Outpatient (CLI) | payer BC, SELFPAY ==
--- OUTSIDE RECORDS SUMMARY | 2024-12-29 16:57 | XMS_ITS | Clinical Summary ---
Author Organization [facility] Address [address] [place], [place] [address] [address] Phone Care Team Providers Care Patient Appointment Coordinator Name Role Phone Unavailable Primary Care Provider Unavailabl e Allergies No known active allergies Medications SYNTHROID 75 mcg Oral Tablet Take 75 mcg by mouth daily. 11/10/2019 Active venlafaxine (EFFEXOR-XR) 37.5 mg Oral Capsule, Sust. Release 24 hr Take 37.5 mg by mouth daily. 12/12/2019 Active Active Problems Problem Noted Date Diagnosed Date Hypothyroidism 12/15/2019 Social History Tobacco Use Types Packs/Day Years Used Date Smoking Tobacco: Never Smokeless Tobacco: Never Comments Unknown Sex and Gender Information Value Date Recorded Sex Assigned at Not on file Legal Sex Female 9:14 AM EDT Gender Identity Not on file Sexual Orientation Not on file Last Filed Vital Signs Vital Sign Reading Time Taken Comments Blood Pressure - - Pulse 92 12/27/2020 10:12 AM EDT Temperature - - Respiratory Rate - - Oxygen Saturation 98% 12/27/2020 10:12 AM EDT Inhaled Oxygen Concentration - - Weight 60.8 kg (134 lb) 12/27/2020 10:12 AM EDT Height 165.1 cm (5' 5 ) 12/27/2020 10:12 AM EDT Body Mass Index 22.3 12/27/2020 10:12 AM EDT Plan of Treatment Health Maintenance Due Date Last Done Comments Annual Wellness Exam 07/14/1982 Hepatitis B Vaccine (1 of 3 - 19+ 3-dose series) 07/14/1998 Cervical Cancer Screening 07/14/2000 Pap Smear 07/14/2000 HPV/Pap Cotest 07/14/2009 Breast Cancer Screening 2019 Cologuard 07/14/2024 Colon Cancer Screening 07/14/2024 Colonoscopy 07/14/2024 FIT 07/14/2024 Sigmoidoscopy 07/14/2024 Virtual Colonography 07/14/2024 COVID-19 Vaccine (1 - 2024-2 6 season) 2024 Influenza Vaccine (#1) 2024 DTaP/TDaP/Td (4 - Td or Tdap) 12/16/2024, 09/25/2012, 06/20/1995 Meningococcal B Vaccine Aged Out No l onger eligible based on patient's age to complete this topic Pneumococcal Vaccine 0-49 Aged Out No longer eligible based on patient's age to complete this topic Insurance [facility] [id number] [facility]
--- OUTSIDE RECORDS SUMMARY | 2024-12-29 16:57 | XMS_ITS | Clinical Summary ---
Author Organization [facility] Address [address] [place] [address] Care Team Providers Care Oil Well Logger Name Role Phone Denita Escudero APRN Primary Care Provider [phone] Family History Medical History Relation Name Comments Hypertension Mother Thyroid disease Mother Diabetes Other Hypertension Paternal Grandmother Relation Name Status Comments Mother Other Paternal Grandmother Social History Tobacco Use Types Packs/Day Years Used Date Smoking Tobacco: Former Alcohol Use Standard Drinks/Week Comments No 0 (1 standard drink = 0.6 oz pur e alcohol) Comments Unknown Sex and Gender Information Value Date Recorded Sex Assigned at Not on file Legal Sex Female 8:42 PM EDT Gender Identity Not on file Sexual Orientation Not on file Last Filed Vital Signs Vital Sign Reading Time Taken Comments Blood Pressure - - Pulse - - Temperature - - Respiratory Rate - - Oxygen Saturation - - Inhaled Oxygen Concentration - - Weight 51.3 kg (113 lb 2.2 oz) 08/03/2016 9:47 A M EDT Height 165.1 cm (5' 5 ) 08/03/2016 9:56 AM EDT Body Mass Index 18.83 08/03/2016 9:47 AM EDT Plan of Treatment Not on file Care Teams Oil Well Logger Relationship Specialty Start Date End Date Denita Escudero APRN [address] [facility] [place] [address] PCP - General 07/23/20
--- NOTE | 2024-12-29 17:01 | MM_ITS ---
PROCEDURE INFORMATION: Exam: MG Bilateral Screening 3D Mammography Exam date and time: 12/29/2024 5:01 PM Age: 44 years old Clinical indication: Screening examination TECHNIQUE: Imaging protocol: Bilateral Screening tomosynthesis and 2D mammography including computer-aided detection (CAD) when performed. COMPARISON: MG MM DIG MAMM DX UNILAT LT CAD 03/06/2024 2:15 PM FINDINGS: MAMMOGRAPHY: Breast composition: The breasts are heterogeneously dense, which may obscure small masses. Mass: None. Architectural distortion: None. Calcifications: No suspicious calcifications. Asymmetric density: None. Skin thickening: None. Axillary adenopathy: None. IMPRESSION: No mammographic evidence of malignancy. Annual screening is recommended unless otherwise clinically indicated. ASSESSMENT: BI-RADS Category 1: Negative.
== END 2024-12-29 23:59 | disposition home or self-care (01) ==
LOC: RAD 16:55
PROVIDERS: PCP Physician Assistant; Visit Provider Physician Assistant
DX: Z12.31 Encounter for screening mammogram for malignant neoplasm of breast (principal); R92.333 Mammographic heterogeneous density, bilateral breasts
CPT/HCPCS: 77063; 77067